=== PATIENT | female | born 1945 | race Caucasian/White ===

== ENCOUNTER → 2017-05-08 | Outpatient (REF) | payer MEDICARE ==
[2017-05-11 00:07] LABS: HPV HYBRID CAPTURE II Negative (Negative)
== END ==
LOC: M SFHCWAGY 10:26
DX: Z12.4 Encounter for screening for malignant neoplasm of cervix (principal); R87.615 Unsatisfactory cytologic smear of cervix
CPT/HCPCS: G0123